=== PATIENT | female | born 1985 | race Caucasian/White ===

== ENCOUNTER → 2016-12-31 | Outpatient (CLI) | payer OTHER ==
[2014-02-19 18:46] VITALS: BP 165/92
--- NOTE | 2016-12-31 13:51 | KCIC ---
PQRS STATEMENT One or more of the following individualized dose reduction techniques were utilized for this study: 1.Automated exposure control 2.Adjustment of the mA and/or kV according to patient size 3.Use of iterative reconstruction technique CT maxillofacial Indication: Reason For Study Reason: CHRONIC SINUSITIS X 5 YEARS / Spl. Instructions: / History: Technique: multiple contiguous axial images were obtained through the facial bones. Coronal and sagittal reformations were created. Findings: Medial antrectomies have been performed bilaterally. There is moderate opacification of the right maxillary sinus but no layering fluid collection. This is seen to a lesser degree on the left. Soft tissues are within normal limits. No facial fractures are identified. Temporomandibular joints are intact. The globes and orbits are within normal limits. Parapharyngeal soft tissues are within normal limits. Impression: Medial antrectomies have been performed bilaterally. There is moderate opacification of the right maxillary sinus but no layering fluid collection. This is seen to a lesser degree on the left. Electronically signed by: Kedar Russell (December 31, 2016 13:49:34)
== END | disposition home or self-care (01) ==
LOC: KCIC CT 13:02
PROVIDERS: ATTEND Allergy & Immunology
DX: J32.9 Chronic sinusitis, unspecified (principal)
CPT/HCPCS: 70486

== ENCOUNTER → 2021-01-08 | Outpatient (CLI) | payer BC, OTHER ==
[2014-02-19 18:46] VITALS: BP 165/92
--- NOTE | 2021-01-08 13:37 | RAD ---
EXAM: Sonographic guided thyroid fine-needle aspiration. HISTORY: 35-year-old female presents for fine-needle aspiration of a left thyroid nodule demonstrated on a sonogram performed at an outside facility. TECHNIQUE: The risks of the procedure were discussed the patient and written informed consent was obt ained. A timeout was performed. Sonographic imaging of the left thyroid lobe was performed and the no dule concern was identified. The skin overlying this region was sterilely prepped, draped and infiltr ated with 1 percent lidocaine. Multiple passes were made into the nodule with 25-gauge needles using sonographic guidance and the aspirate was submitted to the pathologist for interpretation. Manual com pression was maintained until hemostasis was achieved. A sterile bandage was placed. The patient tole rated the procedure without complication. IMPRESSION: Successful sonographic guided left thyroid nodule fine-needle aspiration. An addendum to this report will be submitted when pathology results are available. Electronically signed by: Brianne Acosta MD (01/08/2021 1:34 PM) [id number]
--- NOTE | 2021-01-12 15:13 | PATHOLOGY ---
Note [facility] Accession Number: [id number] TESTS RESULT FLAG UNITS REF RANGE LAB Clinician Provided Cytology Information No. of containers..01 Other (Miscellaneous) Source: LEFT THYROID DIAGNOSIS: LEFT THYROID INCONCLUSIVE. B[place]ES[place] CATEGORY III. FOLLICULAR LESION OF UNDETERMINED SIGNIFICANCE. SPECIMEN CONSISTS OF ABUNDANT FOLLICULAR CELLS WITH SCANT COLLOID. THE DIFFERENTIAL DIAGNOSIS INCLUDES CELLULAR ADENOMATOID NODULE AND FOLLICULAR NEOPLASM. THIS INTERPRETATION INCLUDES EVALUATION OF A CELL BLOCK. THE RETAIN VIAL WILL BE SENT FOR MOLECULAR TESTING AND AN ADDITIONAL REPORT WILL FOLLOW Pathologist ICD10: R89.6 Signed out by: Raymundo Fuentes MD, Pathologist NPI- [id number] Performed by: Laverne Escobar, Government Clerk ([facility]) Gross description: 30ML, PALE PINK, 2F 2A 2HE /LCS 01/09/2021 1454 Local FLAG LEGEND: L-Low Normal,H-High Normal,LL-Alert Low,HH-Alert High <-Panic Low,>-Panic High,A-Abnormal,AA-Critical Abnormal Performed at: [facility] [address] [place] [address] Raymundo Fuentes MD, Specimen Comment: A courtesy copy of this report has been sent to [phone] Specimen Comment: [id number], Specimen Comment: [id number] Specimen Comment: Report sent to Performed at: 01 [facility] [address] [facility] [address], [place], [place] [id number] MD Raymundo Fuentes MD Phone: [phone]
== END | disposition home or self-care (01) ==
LOC: US 15:37
PROVIDERS: ATTEND Surgery
DX: E04.1 Nontoxic single thyroid nodule (principal); Z79.899 Other long term (current) drug therapy; Z72.89 Other problems related to lifestyle
CPT/HCPCS: 10005; 60300; 76942; 88173; 88305

== ENCOUNTER 2021-02-10 10:31 | Observation (INO) | payer BC ==
[2021-02-10] VITALS (10 sets, daily range): BP systolic 109–177; BP diastolic 55–98
[~2021-02-10] VITALS: Ht 172.7 cm; Wt 135.0 kg
[~2021-02-10 10:31] MED LIST: ARIP15TA3 PO; CHOL5000 PO; DEXT20TA2 PO; ESCITALOPRAM OX20 MG PO; FERR-36 PO; HYDROmorphone 2 MG/ML VIAL IVP PRN; IV RINGERS,LACTATED 1000ML 1,000 ML IV SCH; MORPHINE SULFATE 2 MG/ML VIAL. IVP PRN; PROCHLORPERAZINE 10 MG/2 ML VIAL. IVP PRN; TRAZ-123 PO; fentaNYL PF VIAL 100 MCG/2 ML VIAL IVP PRN
[2021-02-10] MEDS ORDERED: LEVOFLOXACIN 750 MG IV ONE (11:30)
[2021-02-10] MEDS ORDERED: SUCCINYLCHOLINE 200 MG/10 ML VIAL. ONE (12:04)
[2021-02-10] MEDS ORDERED: fentaNYL PF VIAL 100 MCG/2 ML VIAL ONE (12:23)
[2021-02-10] MEDS ORDERED: LIDOCAINE 2% PF 5 ML VIAL. ONE (12:54)
[2021-02-10] MEDS ORDERED: PHENYLEPHRINE in 0.9% NACL PF 1 MG/10 ML SYRINGE. IV ONE (12:54)
[2021-02-10] MEDS ORDERED: ONDANSETRON PF 4 MG/2 ML VIAL. ONE (12:54)
[2021-02-10] MEDS ORDERED: PROPOFOL 10 MG/ML (20ML) VIAL. IV ONE (12:54)
[2021-02-10] MEDS ORDERED: DEXAMETHASONE SOD PHOS 4 MG/ML VIAL ONE (12:54)
[2021-02-10] MEDS ORDERED: SEVOFLURANE 61 TO 120 MINUTES. IH ONE (12:55)
[2021-02-10] MEDS ORDERED: SEVOFLURANE > 120 MINUTES. IH ONE (13:29)
[2021-02-10] MEDS ORDERED: PROCHLORPERAZINE 10 MG/2 ML VIAL. IV PRN (14:15)
[2021-02-10] MEDS ORDERED: HYDROmorphone 2 MG/ML VIAL IV PRN (14:15)
[2021-02-10] MEDS ORDERED: NALOXONE 0.4 MG/ML VIAL. IV PRN (14:15)
[2021-02-10] MEDS ORDERED: ONDANSETRON PF 4 MG/2 ML VIAL. IVP PRN (14:15)
[2021-02-10] MEDS ORDERED: HYDROcodone/APAP 5/325MG 1 TAB TABLET PO PRN ×2 (14:15)
[2021-02-10] MEDS: IV NORMAL SALINE 1000ML BAG 1,000 ML IV SCH (14:15)
[2021-02-10] MEDS ORDERED: 0.9 % SODIUM CHLORIDE 10 ML DISP.SYRIN. IV PRN (14:15)
--- NOTE | 2021-02-10 14:18 | PDOC4 ---
Operative Note Operative Note Operative Note: Preoperative Diagnosis: Thyroid mass Postoperative Diagnosis: Same Procedure: Total thyroidectomy Surgeon: Russ Second Worker: Dr. Valdez MOORE, Vianey BUSTOS Anesthesia: General EBL: 40 mL Specimen: Thyroid to pathology Drains: None Complications: None Indication: The patient is a 35-year-old female who was referred following a recent thyroid evaluation. This identified a small nodule in the right thyroid and a large nodule in the left thyroid. An FNA of the left thyroid nodule confirmed a follicular lesion of unknown significance. 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 Based on this work-up we recommend total thyroidectomy. The risks of surgery were discussed which include bleeding, infection, recurrent laryngeal nerve injury, pain, voice changes, hypoparathyroidism, anesthetic risk, potential need for additional surgery procedure. She understands and would like to proceed. Description: The patient was taken to the operating room and placed supine on the operating table. General anesthesia was performed. The anterior neck was prepped with ChloraPrep and draped in a standard surgical manner. The Nims device was also assembled. A curved incision was made two fingerbreadths above the sternal notch. Cautery dissection was carried down to the platysma which was divided. Subplatysmal flaps were developed both superiorly and inferiorly. The strap muscle fascia was then divided in the midline exposing the thyroid gland. We started mobilizing the left thyroid lobe initially. All of the lateral attachments to the strap muscles were freed up. The vessels of the superior pole were dissected free, ligated with 2-0 Vicryl, and divided. The harmonic scalpel assisted with mobilization of the thyroid. In a similar manner vessel supplying the inferior pole were also ligated with 3-0 Vicryl and divided. Due to the presence of the nodule in the inferior aspect of the left lobe rolled toward the midline fairly readily. Some of the remaining lateral attachments were well divided with the harmonic scalpel. The recurrent laryngeal nerve was readily identified using the Nims device. We then directed our attention to the right thyroid lobe. In a similar manner the lobe was mobilized from the strap muscles. Both the superior and inferior poles were freed up and vessel supplying the poles were ligated with Vicryl ties and divided. There was a tighter ligament of Mcfarlane in close association to the recurrent laryngeal nerve. The nerve was readily identified and stimulated appropriately. We left a tiny rim of tissue adjacent to the nerve and mobilized the remainder of the thyroid in a lateral to medial fashion. Any of the r emaining anterior tracheal attachments were mobilized with the harmonic scalpel. A suture then marked the superior pole of the right thyroid lobe and the specimen was sent to pathology. Hemostasis was good and no other gross abnormalities were seen. The strap muscle fascia was reapproximated with 3-0 Vicryl. The platysma was similarly approximated with 3-0 Vicryl. The skin was closed with 4-0 Monocryl. A sterile dressing was then applied. The patient tolerated the procedure well and was sent to the recovery room in stable condition. At the end of the case all counts were correct. VETO TREADWELL MD Feb 10, 2021 14:18
--- NOTE | 2021-02-10 15:00 | NUR ---
Arrived to unit by bed from PACU. Alert and oriented x's 4. C/o a sore throat. Anterior neck dressing d/i. Able to move all extremities without difficulty. Denies any numbness or tingling. IVF's intact and infusing. PAUL's and SCD's on bilaterally. Oriented to room and controls. Side rails up x's 2 with call light in reach. Mother at bedside.
--- NOTE | 2021-02-10 15:38 | NUR ---
Pt vomited of estimate 500cc brownish color liquid. Pt states feeling better. [place] and sheet changed. IV compazine given. Cont. monitor.
[2021-02-10] MEDS: IV 1/2 NORMAL SALINE 1,000 ML IV SCH (19:25)
[2021-02-11 02:04] VITALS: BP 138/88
[2021-02-11] MEDS: IV 1/2 NORMAL SALINE 1,000 ML IV SCH ×3 (02:45→21:14)
[2021-02-11 06:58] VITALS: BP 138/88
--- NOTE | 2021-02-11 08:58 | PDOC ---
PROGRESS NOTES Date of Service DATE: 02/11/21 TIME: 08:56 Subjective Subjective multiple episodes of emesis yesterday, able to tolerate liquids this morning Objective Objective Vital Signs Date Time Temp Pulse Resp B/P (MAP) Pulse Ox O2 Delivery O2 Flow Rate FiO2 02/11/21 06:58 98.9 89 18 138/88 (105) 95 Room Air 98.9 02/10/21 14:19 8 Intake and Output 02/11/21 07:00 Intake Total 2050 ml Output Total 1640 ml Balance 410 ml Intake Oral 400 ml IV Total 1650 ml Output Urine Total 900 ml Emesis 700 ml Estimated Blood Loss 40 ml # Voids 2 Physical Exam Physical Exam dressing clean and dry Assessment Assessment S/P thyroidectomy Plan Plan of Care Need to keep additional day, repeated vomiting yesterday; try to advance diet today, calcium a bit low, need to recheck in AM as may need supplementation Comment Review of Relevant I have reviewed the following items kylee (where applicable) has been applied. Labs Laboratory Tests Test 02/10/21 09:57 02/11/21 06:45 Bedside Urine HCG, Qualitative Hcg negative (Negative) Calcium Level 8.3 mg/dL (8.5-10.1) Laboratory Tests Test 02/10/21 09:57 02/11/21 06:45 Bedside Urine HCG, Qualitative Hcg negative (Negative) Calcium Level 8.3 mg/dL (8.5-10.1) Medications Current Medications Fentanyl Citrate (Fentanyl 2ml Vial) 25 mcg PRN Q5MIN PRN IVP MILD PAIN 1-3; Start 02/10/21 at 06:00; Stop 02/11/21 at 05:59; Status DC Fentanyl Citrate (Fentanyl 2ml Vial) 50 mcg PRN Q5MIN PRN IVP MODERATE PAIN 4- 6; Start 02/10/21 at 06:00; Stop 02/11/21 at 05:59; Status DC Morphine Sulfate (Morphine Sulfate) 1 mg PRN Q10MIN PRN IVP SEVERE PAIN 7-10; Start 02/10/21 at 06:00; Stop 02/11/21 at 05:59; Status DC Ringer's Solution 1,000 ml @ 30 mls/hr Q24H IV Last administered on 02/10/21at 11:14; Start 02/10/21 at 06:00; Stop 02/10/21 at 17:59; Status DC Hydromorphone HCl (Dilaudid) 0.5 mg PRN Q10MIN PRN IVP SEVERE PAIN 7-10, 2nd CHOICE; Start 02/10/21 at 06:00; Stop 02/11/21 at 05:59; Status DC Prochlorperazine Edisylate (Compazine) 5 mg PACU PRN PRN IVP NAUSEA, MRX1; Start 02/10/21 at 06:00; Stop 02/11/21 at 05:59; Status DC Levofloxacin/ Dextrose 150 ml @ 100 mls/hr 1X PREOP PRN IV PRIOR TO PROCEDURE Last administered on 02/10/21at 12:10; Start 02/10/21 at 06:00; Stop 02/10/21 at 18:00; Status DC Sodium Chloride (Normal Saline Flush) 3 ml QSHIFT PRN IV AFTER MEDS AND BLOOD DRAWS; Start 02/10/21 at 14:15 Sodium Chloride 1,000 ml @ 80 mls/hr [id number] IV Last administered on 02/10/21at 19:25; Start 02/10/21 at 14:15 Acetaminophen/ Hydrocodone Bitart (Lortab 5/325) 1 tab PRN Q4HRS PRN PO MILD PAIN 1-3; Start 02/10/21 at 14:15 Acetaminophen/ Hydrocodone Bitart (Lortab 5/325) 2 tab PRN Q4HRS PRN PO MODERATE PAIN, SEVERE PAIN; Start 02/10/21 at 14:15 Naloxone HCl (Narcan) 0.4 mg PRN Q2MIN PRN IV SEE INSTRUCTIONS; Start 02/10/21 at 14:15 Sodium Chloride 1,000 ml @ 25 mls/hr Q24H IV ; Start 02/10/21 at 14:15 Hydromorphone HCl (Dilaudid) 0.2 mg PRN Q1HR PRN IV PAIN; Start 02/10/21 at 14:15 Ondansetron HCl (Zofran) 4 mg PRN Q6HRS PRN IVP NAUESA, 1ST CHOICE Last administered on 02/10/21at 17:13; Start 02/10/21 at 14:15 Prochlorperazine Edisylate (Compazine) 5 mg PRN Q6HRS PRN IV N/V, 2nd Choice, MR X1 Last administered on 02/10/21at 15:27; Start 02/10/21 at 14:15 Ferrous Sulfate (Feosol) 325 mg DAILY PO ; Start 02/11/21 at 09:00; Status UNV Trazodone HCl (Desyrel) 100 mg HS PO ; Start 02/11/21 at 21:00; Status UNV Non-Formulary Medication (Aripiprazole (Abilify)) 15 mg HS PO ; Start 02/11/21 at 21:00; Status UNV Non-Formulary Medication (Dextroamphetamine/ Amphetamine (Adderall 20 Mg Tablet)) 20 mg DAILY PO ; Start 02/11/21 at 09:00; Status UNV Non-Formulary Medication (Escitalopram Oxalate ) 15 mg DAILY PO ; Start 02/11/21 at 09:00; Status UNV Active Scripts Active Reported Iron (Ferrous Sulfate) 325 Mg Tablet 325 Mg PO DAILY Vitamin D3 (Vitamin D) 125 Mcg Capsule 125 Mcg PO DAILY 5,000 UNITS = 125 MCG Adderall 20 Mg Tablet (Dextroamphetamine/Amphetamine) 20 Mg Tablet 20 Mg PO DAILY Trazodone Hcl 100 Mg Tablet 100 Mg PO HS Abilify (Aripiprazole) 15 Mg Tablet 15 Mg PO HS Escitalopram Oxalate 20 Mg Tablet 15 Mg PO DAILY Vitals/I & O Vital Sign - Last 24 Hours 02/10/21 02/10/21 02/10/21 02/10/21 11:03 14:04 14:19 14:19 Temp 97.5 99.2 99.2 97.5 99.2 99.2 Pulse 84 77 73 Resp 20 30 25 B/P (MAP) 146/75 146/81 Pulse Ox 100 100 100 O2 Delivery Simple Mask Simple Mask Mask O2 Flow Rate 8 8 8 02/10/21 02/10/21 02/10/21 02/10/21 14:30 14:34 14:45 14:49 Temp 98.4 99.2 99.2 98.4 99.2 99.2 Pulse 57 68 58 69 Resp 18 21 16 21 B/P (MAP) 136/67 (90) 146/86 122/77 (92) 139/82 Pulse Ox 98 98 97 O2 Delivery Room Air Room Air Room Air Room Air 02/10/21 02/10/21 02/10/21 02/10/21 15:00 15:12 15:15 15:45 Pulse 63 62 67 Resp 16 18 20 B/P (MAP) 136/74 (94) 156/81 (106) 140/88 (105) O2 Delivery Room Air Room Air Room Air Room Air 02/10/21 02/10/21 02/10/21 02/10/21 16:00 17:00 18:09 20:00 Temp 98.0 98.0 Pulse 63 66 67 Resp 20 20 20 B/P (MAP) 157/94 (115) 144/90 (108) 177/96 (123) Pulse Ox 95 O2 Delivery Room Air Room Air Room Air Room Air 02/10/21 02/11/21 02/11/21 22:39 02:04 06:58 Temp 98.3 98.9 98.9 98.3 98.9 98.9 Pulse 93 89 89 Resp 18 18 18 B/P (MAP) 152/98 (116) 138/88 (105) 138/88 (105) Pulse Ox 95 95 95 O2 Delivery Room Air Room Air Room Air Intake and Output 02/10/21 02/10/21 02/11/21 15:00 23:00 07:00 Intake Total 1650 ml 400 ml Output Total 740 ml 900 ml Balance 910 ml -900 ml 400 ml Justifications for Admission Other Justification VETO TREADWELL MD Feb 11, 2021 08:58
[2021-02-11] MEDS ORDERED: NON FORMULARY ITEM (Dextroamphetamine/Amphetamine (Adderall 20 Mg Tablet) 20 MG) PO SCH (09:00)
[2021-02-11] MEDS: FERROUS SULFATE 325 MG TABLET. PO SCH (09:16)
[2021-02-11] MEDS: CITALOPRAM 20 MG TABLET. PO SCH (09:16)
[2021-02-11] MEDS: LEVOTHYROXINE 125 MCG TABLET PO SCH (09:16)
--- NOTE | 2021-02-11 11:00 | NUR ---
Pt mother brought in pt's Adderall for today.
[2021-02-11 11:25] VITALS: BP 131/85
[2021-02-11] MEDS: IV NORMAL SALINE 1000ML BAG 1,000 ML IV SCH (14:15)
[2021-02-11 15:20] VITALS: BP 130/82
--- NOTE | 2021-02-11 16:00 | NUR ---
Up at aleksandr in room. No c/o at this time. Tolerating diet and fluids well. Cont. monitor.
[2021-02-11 19:01] VITALS: BP 148/89
[2021-02-11] MEDS ORDERED: ARIPiprazole 5 MG TABLET PO SCH (21:00)
[2021-02-11] MEDS ORDERED: traZODone 100 MG TABLET. PO SCH (21:00)
[2021-02-11 23:20] VITALS: BP 129/88
[2021-02-12 03:15] VITALS: BP 124/88
[2021-02-12] MEDS: LEVOTHYROXINE 125 MCG TABLET PO SCH (05:21)
[2021-02-12 05:35] VITALS: BP 121/65
[2021-02-12] MEDS: CITALOPRAM 20 MG TABLET. PO SCH (08:35)
[2021-02-12] MEDS: FERROUS SULFATE 325 MG TABLET. PO SCH (08:35)
--- NOTE | 2021-02-12 10:28 | NUR ---
Miranda is doing well. She tolerated supper last night and breakfast this am. Mother is at bedside.Miladys here and dismissed. original surgical dressing removed. steri strips intact; no drainage or redness noted. she is requesting name of medication that she was given that helped with her nausea. she is to follow up in [address] Solano. she has decided she would like to be off until after seeing Dr. Solano. Miladys informed
--- NOTE | 2021-02-12 10:52 | PDOC ---
SURGICAL PROGRESS NOTE DATE: 02/12/21 TIME: 10:50 Subjective tolerating diet no further vomiting ready to go home Vital Signs Vital Signs Date Time Temp Pulse Resp B/P (MAP) Pulse Ox O2 Delivery O2 Flow Rate FiO2 02/12/21 08:00 Room Air 02/12/21 05:35 98.3 96 18 121/65 (83) 95 98.3 I&O Intake and Output 02/12/21 07:00 Intake Total 920 ml Balance 920 ml Intake Oral 920 ml # Voids 3 General: Alert, Oriented X3, Cooperative HEENT: Other (incision intact, minimal swelling ) Labs Laboratory Tests Test 02/11/21 06:45 02/12/21 03:40 Calcium Level 8.3 mg/dL (8.5-10.1) Ionized Calcium 1.17 mmol/L (1.13-1.32) Laboratory Tests Test 02/12/21 03:40 Ionized Calcium 1.17 mmol/L (1.13-1.32) Assessment/Plan home scripts sent FU 1 week Justicifation of Admission Dx: Justifications for Admission: Justification of Admission Dx: Yes Comments: thyroid mass KHOI SANTANA DRAIN CLEANER Feb 12, 2021 10:52
[2021-02-12] MEDS ORDERED: DOCU-109 PO (10:55)
[2021-02-12] MEDS ORDERED: HYDR-2761 PO (10:55)
[2021-02-12] MEDS ORDERED: LEVO125T5 PO (10:55)
--- NOTE | 2021-02-12 10:57 | DISCH ---
DISCHARGE INSTRUCTIONS Condition on Discharge Condition on Discharge: Stable Activity After Discharge Activity Instructions for Disc: Activity as tolerated Bathing Instructions: Shower-keep dressing dry Driving Instructions after Dis: Do not drive today Diet after Discharge Diet after Discharge: Regular Wound Incision Care Wound/Incision Care: May get incision wet, No wound care needed Contacting the after DC Call your doctor for: Concerns you may have Follow-Up Follow up with: Khoi with Dr Solano 02/20 0678, questions call [phone] KHOI SANTANA CLINIC SPECIALIST Feb 12, 2021 10:57
[2021-02-12 11:00] VITALS: BP 128/86
--- NOTE | 2021-02-12 11:30 | NUR ---
reviewed written discharge instructions with Miranda and mother, jan. all questions answered. saline lock removed. f/u date 02/[address] Solano
--- NOTE | 2021-02-16 11:23 | PATHOLOGY ---
[facility] Accession Number: [id number] . 01 Material submitted: . thyroid gland - THYROID- STITCH AT RIGHT SUPERIOR POLE . 01 Clinical history: . MULTINODULAR THYROID TOTAL THYROIDECTOMY STITCH AT RIGHT SUPERIOR POLE . . 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 SEE SYNOPTIC REPORT. - Tumor is confined to thyroid and is less than 1 mm from the closest anterior margin of resection. 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 - Single right parathyroid gland identified. (JPM:garth/mml/garth 02/16/2021) . . Surgical Pathology Cancer Case Summary . Protocol posting date: March 2019 . THYROID GLAND: . Procedure ___ Total thyroidectomy . Tumor Focality ___ Unifocal . Tumor Site ___ Right lobe . . Tumor Size Greatest dimension: 1.0 cm . Histologic Type . Papillary Carcinomas ___ Papillary carcinoma, classic (usual, conventional) . Margins ___ Uninvolved by carcinoma + Distance of invasive carcinoma from closest margin: Less than 1 mm . Angioinvasion (Vascular Invasion) ___ Not identified . Lymphatic Invasion ___ Not identified . + Perineural Invasion +___ Not identified . Extrathyroidal Extension ___ Not identified . Regional Lymph Nodes ___ No lymph nodes submitted or found . Pathologic Stage Classification (pTNM, AJCC 8th Edition) . Primary Tumor (pT) ___ pT1a: Tumor less than or equal to 1 cm in greatest dimension limited to the thyroid . Regional Lymph Nodes (pN)# ___ pNX: Regional lymph nodes cannot be assessed . + Additional Pathologic Findings + ___ Other: Microfollicular adenoma of left thyroid node measuring 2.3 cm . + Clinical + ___ No known radiation exposure . [facility] [place] 02/16/2021 0847 Local . 02 Comment: The case is also examined by Dr. Whaley, who concurs with the diagnosis. The results are reported to Dr. Solano on 02/16/21 at 9:15 AM. (JPM:garth; 02/12/2021) . 02 Electronically signed: . Jun Pitt MD, Pathologist NPI- [id number] . 01 Gross description: . Fixative: Formalin Labeled: Thyroid-stitch at right superior pole Received: A suture oriented total thyroidectomy (right lobe, left lobe, and isthmus) Dimensions: Right lobe-3.8 x 2.0 x 1.8 cm, Left lobe- 4.0 x 3.0 x 2.3 cm, and Isthmus-2.0 x 0.8 x 0.6 cm Weight: 21 grams The specimen is inked as follows: Anterior Right lobe-blue Anterior Left lobe-green Anterior isthmus-orange Deep-black Sections from: Superior pole to inferior pole, Photographs of sections available upon request Lesions: - Left lobe: A well-defined encapsulated fibrous/gelatinous mass measuring 2.3 x 2.0 x 2.0 cm located 0.1 cm from anterior margin (green) and 0.1 cm from deep margin (black). The uninvolved parenchyma is beefy red-brown - Isthmus: beefy red-brown glandular parenchyma and no grossly apparent lesions - Right lobe: A well-defined white firm fibrous mass measuring 1.0 x 0.6 x 0.6 cm located within 0.1 cm of the anterior margin (blue) and 0.6 cm of the deep margin (black). The uninvolved parenchyma is beefy red-brown . The specimen is entirely submitted in cassettes A1-perpendicular sections of the left lobe superior pole A2 and A3 - sequential sections of the left lobe uninvolved parenchyma A4 thru A9 - entire sequential sections of left lobe well-defined mass A10 and A11 -perpendicular sections of the left lobe inferior pole A12 - entire isthmus A13 -perpendicular sections of the right lobe superior pole A14 and A15 - sequential sections of right lobe uninvolved parenchyma A16 thru A19 - entire sequential sections of the right lobe well-defined mass A20 through A02-brxcciqsf sections of the right lobe uninvolved parenchyma U81-aotakactajlmj section of the right lobe inferior pole (BLJ; 02/11/2021) BLJ/BLJ 02/16/2021 0807 Local . 02 Pathologist provided ICD-10: C73, D34 . 02 CPT . 744425 Specimen Comment: A courtesy copy of this report has been sent to [phone] Specimen Comment: [id number] Specimen Comment: Report sent to / EBONY Specimen Comment: A duplicate report has been generated due to demographic updates. Performed at: 01 [facility] [address] [facility] [address], [place] [id number] MD Raymundo Fuentes MD Phone: [phone] Performed at: 02 [facility] [address] [place], [place] [id number] MD Jun Pitt MD Phone: [phone]
== END 2021-02-12 12:00 | disposition home or self-care (01) ==
LOC: SURG 10:31 → 4 SOUTHEST 14:04
PROVIDERS: ADMIT Surgery; ATTEND Surgery
DX: E04.1 Nontoxic single thyroid nodule (principal)
CPT/HCPCS: 36415; 60220; 81025; 82310; 96361; 96374; 96375; A4314; A4364; A4930; A6402; G0378; G0379; J0330; J0780; J1100; J1956; J2370; J2405; J2704; J3010; J3490; A4223; A4452